=== PATIENT | female | born 1980 | race African-American/Black ===

== ENCOUNTER 2017-09-21 11:33 | Emergency (ER) | payer MEDICARE ==
[2013-05-25 13:18] VITALS: BMI 46.0
[~2017-09-21 11:33] MED LIST: DEMEROL50 MG PO; LUMIGAN 0.03 %2.5 ML EACH EYE; PRINZIDE 10/12.1 TAB PO; XANAX XR2 MG PO
== END 2017-09-21 13:00 | disposition home or self-care (01) ==
LOC: D.ER 11:33
DX: R51 Headache (principal); I10 Essential (primary) hypertension